=== PATIENT | male | born 1970 | race Caucasian/White ===

== ENCOUNTER 2019-04-24 15:18 | Emergency (ER) | payer BC, OTHER ==
[~2019-04-24] VITALS: Ht 182.9 cm; Wt 109.4 kg
[~2019-04-24 15:18] MED LIST: BAC10T PO; CLOT12CR TP; CYCL-394 PO; FLUO10CA66 PO; IBUP-1984 PO; LORA1TAB PO; TIAG4TAB32 PO; TRAM50TA2 PO
[2019-04-24 15:55] VITALS: BP 132/92
[2019-04-24] MEDS ORDERED: orphenadrine citrate 60mg/2ml inj. IM ONE (16:55)
[2019-04-24] MEDS ORDERED: ketorolac tromethamine 15mg/ml inj. IM ONE (16:55)
[2019-04-24] MEDS ORDERED: METH-360 PO (16:55)
== END 2019-04-24 17:15 | disposition home or self-care (01) ==
LOC: ER 15:19
DX: M25.511 Pain in right shoulder (principal); M79.641 Pain in right hand; Z88.5 Allergy status to narcotic agent; Z79.899 Other long term (current) drug therapy; X58.XXXA Exposure to other specified factors, initial encounter; Y93.89 Activity, other specified; Y92.89 Other specified places as the place of occurrence of the external cause; Y99.8 Other external cause status
CPT/HCPCS: 73030; 96372; 99283; J1885; J2360

== ENCOUNTER 2020-01-22 09:11 | Outpatient (CLI) | payer BC ==
[~2020-01-22] VITALS: Ht 182.9 cm; Wt 99.8 kg
[~2020-01-22 09:11] MED LIST changes: +METH-360 PO
[2020-01-22] MEDS ORDERED: FLUO40CA PO (10:08)
[2020-01-22 10:32] LABS: BASOPHILS % (AUTO) 0.9 % (0-1); EOSINOPHILS # (AUTO) 0.1 X10'3 (0-0.9); EOSINOPHILS % (AUTO) 1.5 % (0-6); LYMPHOCYTES # (AUTO) 1.7 X10'3 (1.1-4.8); LYMPHOCYTES % (AUTO) 29.9 % (21-51); MEAN CORPUSCULAR HEMOGLOBIN 31.2 PG (27.0-31.0); MEAN CORPUSCULAR HGB CONC 34.5 g/dL (33.0-36.5); MEAN CORPUSCULAR VOLUME 90.5 FL (78-98); MEAN PLATELET VOLUME 8.5 FL (7.4-10.4); MONOCYTES # (AUTO) 0.4 X10'3 (0-0.9); MONOCYTES % (AUTO) 7.9 % (2-12); NEUTROPHILS # (AUTO) 3.4 X10'3 (1.8-7.7); NEUTROPHILS % (AUTO) 59.8 % (42-75); PRE OP HEMOGLOBIN 16.6 g/dL (14.0-17.9); PRE OP PLATELET COUNT 184 X10'3 (140-440); RED BLOOD COUNT 5.31 X10'6 (4.70-6.10); RED CELL DISTRIBUTION WIDTH 13.6 % (11.5-14.5)
[2020-01-22 10:46] LABS: PRE OP PROTIME 10.5 SECONDS (9.0-12.0)
[2020-01-22 10:50] LABS: ALBUMIN 4.2 G/DL (3.4-5.0); ALBUMIN/GLOBULIN RATIO 1.3 (1.1-1.5); ALKALINE PHOSPHATASE 76 IU/L (46-116); BLOOD UREA NITROGEN 10 MG/DL (7-18); BUN/CREATININE RATIO 11.8 (5.4-32.0); CALCIUM 8.4 MG/DL (8.5-10.1); CHLORIDE 106 MMOL/L (99-107); CREATININE 0.85 MG/DL (0.60-1.10); PRE OP ALT 25 U/L (30-65); PRE OP ANION GAP 5 (8-16); PRE OP AST 22 U/L (10-37); PRE OP BILIRUB, TOTAL 0.6 MG/DL (0.0-1.0); PRE OP GLUCOSE 94 MG/DL (70-104); PRE OP SODIUM 142 MMOL/L (135-145); TOTAL CARBON DIOXIDE 30.8 MMOL/L (24-32); TOTAL PROTEIN 7.5 G/DL (6.4-8.2); eGFR > 90 ML/MIN
[2020-01-28] MEDS ORDERED: ringers solution, lacted 1,000 ML IV SCH (05:00)
[2020-01-28] MEDS ORDERED: cefazolin/dext.iso 2gm/100ml 100 ML IV ONE (05:30)
[2020-01-28] MEDS ORDERED: celeCOXIB 100mg capsule PO ONE (05:30)
[2020-01-28] MEDS ORDERED: vancomycin 1,500 MG in NS 500ml IV soln IV ONE (05:30)
[2020-01-28] MEDS ORDERED: metoclopramide 5 mg/ml inj IV ONE (05:30)
[2020-01-28] MEDS ORDERED: acetaminophen 325mg tablet PO ONE (05:30)
[2020-01-28] MEDS ORDERED: gabapentin 300mg capsule PO ONE (05:30)
[2020-01-28] MEDS ORDERED: oxyCODONE SR 10mg (sust. release) tab -2 tabs (20mg) PO ONE (05:30)
[2020-01-28] MEDS ORDERED: tranexamic acid inj. 1,000 MG in normal saline 100 ML IV ONE (05:30)
[2020-01-28] MEDS ORDERED: famotidine 20mg tablet PO ONE (05:30)
== END 2020-01-22 23:59 | disposition home or self-care (01) ==
LOC: PRE-OP 09:11 → EDSTATUS 01-28 10:30
PROVIDERS: ATTEND Orthopaedic Surgery
DX: Z01.818 Encounter for other preprocedural examination (principal); M16.11 Unilateral primary osteoarthritis, right hip; Z88.5 Allergy status to narcotic agent
CPT/HCPCS: 36415; 71046; 80053; 85025; 85610; 85730; 86885; 86900; 86901; 87081

== ENCOUNTER 2024-08-07 11:54 | Emergency (ER) | payer BC ==
[~2024-08-07] VITALS: Ht 182.9 cm; Wt 97.0 kg
[~2024-08-07 11:54] MED LIST changes: -BAC10T PO; -CLOT12CR TP; -CYCL-394 PO; -FLUO10CA66 PO; +FLUO40CA PO; -IBUP-1984 PO; -LORA1TAB PO; -METH-360 PO; -TIAG4TAB32 PO; -TRAM50TA2 PO
[2024-08-07 11:59] VITALS: TEMP 98
[2024-08-07] MEDS: HYDROcodone/acetaminophen 10/325mg tab PO ONE (13:15)
[2024-08-07] MEDS: LIDOcaine 1% 30ml preserv. free vial SQ STA (13:16)
[2024-08-07] MEDS ORDERED: AMOX-117 PO (13:46)
[2024-08-07 13:48] VITALS: BP 131/90; PULSE 56; RESP 16; O2SAT 99
== END 2024-08-07 14:00 | disposition home or self-care (01) ==
LOC: ER 11:54
DX: S50.851A Superficial foreign body of right forearm, initial encounter (principal); F41.9 Anxiety disorder, unspecified; F32.A Depression, unspecified; Z88.1 Allergy status to other antibiotic agents; Z88.6 Allergy status to analgesic agent; Z79.2 Long term (current) use of antibiotics; Z87.11 Personal history of peptic ulcer disease; W19.XXXA Unspecified fall, initial encounter; Y93.89 Activity, other specified; Y92.89 Other specified places as the place of occurrence of the external cause; Y99.8 Other external cause status
CPT/HCPCS: 73090; 99284; A6223; A6258; A6446; A6449